=== PATIENT | male | born 1985 | race Caucasian/White ===

== ENCOUNTER 2017-03-18 12:49 | Emergency (ER) | payer BC | END 2017-03-18 13:43 | disposition left against medical advice (07) | LOC: UCCORT 12:49 | DX: R68.89 Other general symptoms and signs (principal); Z53.21 Procedure and treatment not carried out due to patient leaving prior to being seen by health care provider ==

== ENCOUNTER 2017-03-20 17:12 | Emergency (ER) | payer BC ==
[2017-03-20 20:20] VITALS: BP 146/86
--- NOTE | 2017-03-20 20:25 | ED ---
Respiratory - HPI Summary HPI Summary: 31 yr old with chills, cough, nasal congestion, onset about 5 days ago. Denies SOB, CP. He had an influenza shot two weeks ago. No other complaints. - History of Current Complaint Chief Complaint: UCRespiratory Stated Complaint: FEVER, CONGESTION Time Seen by Provider: 03/20/17 20:15 Pain Intensity: 0 - Allergy/Home Medications Allergies/Adverse Reactions: Allergies Allergy/AdvReac Type Severity Reaction Status Date / Time azithromycin Allergy Nausea Verified 03/20/17 20:20 Home Medications: Home Medications NK [No Home Medications Reported] 03/20/17 [History Confirmed 03/20/17] PMH/Surg Hx/FS Hx/Imm Hx - Surgical History Surgery Procedure, Year, and Place: ACL. Flat foot Infectious Disease History: No Infectious Disease History: Denies: Traveled Outside the [place] in Last 30 Days - Family History Known Family History: Positive: None - Social History Occupation: Employed Full-time Alcohol Use: Weekly Substance Use Type: Reports: None Smoking Status (MU): Never Smoked Tobacco Review of Systems Positive: Chills Positive: Sore Throat, Nasal Discharge Positive: Cough Positive: Myalgia All Other Systems Reviewed And Are Negative: Yes Physical Exam Triage Information Reviewed: Yes Vital Signs On Initial Exam: Initial Vitals Temp Pulse Resp BP Pulse Ox 98.1 F 71 16 146/86 100 03/20/17 20:15 03/20/17 20:15 03/20/17 20:15 03/20/17 20:15 03/20/17 20:15 Vital Signs Reviewed: Yes Appearance: Positive: Well-Appearing, No Pain Distress Skin: Positive: Warm, Skin Color Reflects Adequate Perfusion Head/Face: Positive: Normal Head/Face Inspection Eyes: Positive: EOMI ENT: Positive: Pharynx normal, Nasal congestion, TMs normal Neck: Positive: Nontender Respiratory/Lung Sounds: Positive: Clear to Auscultation, Breath Sounds Present Cardiovascular: Positive: RRR. Negative: Murmur Abdomen Description: Positive: Nontender Musculoskeletal: Positive: Strength/ROM Intact Neurological: Positive: Alert, Oriented to Person Place, Time, CN Intact II-III Psychiatric: Positive: Normal Diagnostics - Vital Signs Vital Signs Temp Pulse Resp BP Pulse Ox 03/20/17 20:15 98.1 F 71 16 146/86 100 - Laboratory Lab Statement: Any lab studies that have been ordered have been reviewed, and results considered in the medical decision making process. Disposition - Course Course Of Treatment: 31 yr old with cold and flu symptoms. - Diagnoses Provider Diagnoses: Upper respiratory infection, Hypertension Discharge - Discharge Plan Condition: Good Disposition: HOME Patient Education Materials: Hypertension (ED), Upper Respiratory Infection (ED ) Referrals: No Primary Care Phys,NOPCP [Primary Care Provider] - [facility] [Outside]
== END 2017-03-20 21:03 | disposition home or self-care (01) ==
LOC: UCCORT 17:12
DX: J06.9 Acute upper respiratory infection, unspecified (principal); I10 Essential (primary) hypertension; Z72.89 Other problems related to lifestyle
CPT/HCPCS: 87502; 99211; G0463